=== PATIENT | male | born 1940 | race Caucasian/White ===

== ENCOUNTER 2017-10-01 13:21 | Emergency (ER) | payer OTHER ==
[2017-10-01] MEDS: DEXAMETHASONE SOD PHOS 4 MG/ML VIAL IM (15:08)
== END 2017-10-01 15:20 | disposition home or self-care (01) ==
LOC: PHEFT 13:21
DX: M25.559 Pain in unspecified hip (principal); G89.29 Other chronic pain; Z72.0 Tobacco use
CPT/HCPCS: 96372; 99284-25